=== PATIENT | female | born 1995 | race Caucasian/White ===

== ENCOUNTER 2019-05-29 00:44 | Emergency (ER) | payer OTHER, SELFPAY ==
[2019-05-29 00:46] VITALS: BP 159/103; PULSE 100; RESP 18; TEMP 37.1; O2SAT 100; BMI 20.5
--- NOTE | 2019-05-29 00:57 | ED.VISSUMM ---
- ER Visit Summary Date of Service: 05/29/19 Chief Complaint: Sore throat History of Present Illness: The patient is a 23 F who presents with sore throat and cough that has been getting worse over the last 4 days. Patient describes her pain as aching. Patient states her throat is worse with swallowing. Patient admits to some nasal congestion. Patient admits to a low-grade fever of 101 and subjective chills. Patient admits to some rhinorrhea. Patient admits to a cough but denies any sputum production. Patient admits to general myalgias. Patient denies any nausea or vomiting. Patient denies any urinary complaints. Physical Examination: Vital signs are stable. Patient is afebrile. Patient is in no acute distress. Oral mucosa is pink and moist. Oropharynx is erythematous. There are no tonsillar exudates noted. Tympanic membranes are clear bilaterally. Neck is supple. Trachea is midline. There is no JVD. There is some mild anterior cervical lymphadenopathy that is nontender. Heart was regular rate and rhythm. Lungs are clear and equal bilaterally. Abdomen is soft. Bowel sounds are normal. There is no tenderness. Cranial nerves II through XII are intact. There are no focal motor or sensory deficits. Test Results: Rapid strep was obtained and was negative. Emergency Department Course and Treatment: Patient was advised that this is a viral pharyngitis. Patient was instructed to drink plenty of fluids. Patient was instructed to take Tylenol or ibuprofen as needed for any pain or fevers. Patient was instructed to follow-up with her primary care physician in 5 to 7 days. Patient understood and was agreeable with the plan. All questions were answered. Disposition: Discharge home Impression: Viral pharyngitis This note was generated with [employer] dictation software. It may contain incorrect words, spelling, and punctuation that were not noted in review of the chart prior to signing ED Disposition - Plan for ED Patient: Disposition: Home or Assisted Living Diagnosis: Viral pharyngitis Instructions: PHARYNGITIS, Viral Referrals: [facility],Out of [NON-STAFF] - 5-7 Days
--- NOTE | 2019-05-29 01:55 | ED.RN ---
pt given written and verbal discharge instructions. informed of care for viral pharyngitis at home. educated to return to ed for new or worsened sx such as difficulty breathing, tight throat. pt verbalizes understanding and denies any further questions. pt dresses self and ambulates out of dept with friend.
== END 2019-05-29 01:58 | disposition home or self-care (01) ==
PROVIDERS: Emergency Provider Emergency Medicine
DX: J02.8 Acute pharyngitis due to other specified organisms (principal); B97.89 Other viral agents as the cause of diseases classified elsewhere; R50.9 Fever, unspecified; J34.89 Other specified disorders of nose and nasal sinuses; R06.00 Dyspnea, unspecified; R05 Cough; R09.81 Nasal congestion; M79.10 Myalgia, unspecified site; R59.0 Localized enlarged lymph nodes
CPT/HCPCS: 87880; 99282